=== PATIENT | female | born 1940 | race Caucasian/White ===

== ENCOUNTER 2021-11-01 13:41 | Outpatient (CLI) | payer MEDICARE, BC | END 2021-11-01 13:42 | disposition home or self-care (01) | LOC: CSHMAMMO 13:41 | PROVIDERS: ATTEND Internal Medicine Endocrinology, Diabetes & Metabolism | DX: M81.8 Other osteoporosis without current pathological fracture (principal); M85.88 Other specified disorders of bone density and structure, other site | CPT/HCPCS: 77080 ==

== ENCOUNTER 2023-03-07 13:22 | Outpatient (CLI) | payer MEDICARE, BC | END 2023-03-07 13:23 | disposition home or self-care (01) | LOC: CSHMAMMO 13:22 | PROVIDERS: ATTEND Internal Medicine Endocrinology, Diabetes & Metabolism | DX: M81.8 Other osteoporosis without current pathological fracture (principal) | CPT/HCPCS: 77080 ==